=== PATIENT | male | born 1955 | race Caucasian/White ===

== ENCOUNTER 2024-08-13 02:08 | Day surgery (SDC) | payer BC, SELFPAY ==
[2024-08-06 08:53] VITALS: BMI 27.6
[2024-08-13 07:12] VITALS: BP 149/90; PULSE 102; RESP 18; TEMP 36; O2SAT 99; BMI 27.4
[2024-08-13] MEDS: LACTATED RINGERS 1,000 ML 150 ML IV CONT (07:31)
--- NOTE | 2024-08-13 07:45 | P.PNAN_ITS ---
Anes - Initial Pre Proc Eval Procedure: Operation Date: 08/13/24 08:30 Proposed Procedures p Screening Colonoscopy - Pierre Moss MD Date/Time: 08/13/24 07:45 Surgeon: Pierre Moss MD Pre Op Diagnosis: Screening malignant neoplasm of colon Patient Data Age: 69 Gender: M Height: 1.83 m Weight: 91.8 kg Last Vital Signs Temp 36.0 C L 08/13/24 07:12 Pulse 102 H 08/13/24 07:12 Resp 18 08/13/24 07:12 BP 149/90 H 08/13/24 07:12 Pulse Ox 99 08/13/24 07:12 O2 Del Method Room Air 08/13/24 07:12 Allergies Allergy/AdvReac Type Severity Reaction Status Date / Time No Known Allergies Allergy Mild Verified 08/13/24 07:19 Home Medications ?Medication ?Instructions ?Recorded ?Confirmed ?Type aspirin 81 mg capsule 81 mg PO DAILY 08/06/24 08/13/24 History lisinopril 20 mg tablet 40 mg PO DAILY 08/06/24 08/13/24 History Patient hx anesthesia problems: none Family hx anesthesia problems: none Results Review: All pre-operative results and documents have been reviewed as part of the pre- operative evaluation. [facility] Past Medical History Medical History (Updated 08/13/24 @ 07:46 by Carl Boles DO) Hypertension Surgical History Surgical History (Updated 08/13/24 @ 07:46 by Carl Boles DO) History of prostatectomy Social History Social History Smoking status: Former smoker Tobacco type: cigars Alcohol intake: current Drinks per week: 3 Substance use type: does not use Living arrangements: with family Spiritual care concerns: No Anes - Eval Final PreProcedure Day of Procedure 08/13/24 07:45 Patient weight: overweight Heart: regular rate and rhythm Lungs: clear to auscultation Airway: Mallampati scale class II Neurological: alert and oriented Last oral intake: >/= 8 hours ASA classification: II Emergent: no Anesthetic plan: proceed Anesthesia type and monitoring: general GIVS and standard monitoring Results Review: All pre-operative results and documents have been reviewed as part of the pre- operative evaluation. Informed Consent: The patient's anesthetic plan and its attendant risks and benefits were discussed with the patient/family/POA. Questions were solicited and answers provided to the satisfaction of the patient/family/POA.
--- NOTE | 2024-08-13 08:23 | PM.IMHP ---
H&P: HPI History of Present Illness Date/Time: 08/13/24 08:23 Chief Complaint: Screening colonoscopy Narrative: This is the patient's 2nd colonoscopy after 10 years. There are no GI symptoms and there is no family history of colorectal cancer. Review of Systems Review of Systems: All systems reviewed & are unremarkable except as noted in HPI and below PMFSH Past Medical History Medical History (Updated 08/13/24 @ 08:24 by Pierre Moss MD) Hypertension Surgical History Surgical History (Updated 08/13/24 @ 07:46 by Carl Boles DO) History of prostatectomy Social History Social History Smoking status: Former smoker Tobacco type: cigars Alcohol intake: current Drinks per week: 3 Substance use type: does not use Living arrangements: with family Spiritual care concerns: No Meds Home Medications and Allergies Home Medications ?Medication ?Instructions ?Recorded ?Confirmed ?Type aspirin 81 mg capsule 81 mg PO DAILY 08/06/24 08/13/24 History lisinopril 20 mg tablet 40 mg PO DAILY 08/06/24 08/13/24 History Allergies Allergy/AdvReac Type Severity Reaction Status Date / Time No Known Allergies Allergy Mild Verified 08/13/24 07:19 Vital Signs Vital Signs - 24 hr 08/13/24 07:12 Temperature 96.8 F L Pulse Rate 102 H Respiratory Rate 18 Blood Pressure 149/90 H Pulse Oximetry 99 Oxygen Delivery Room Air Exam Const: General: cooperative and healthy appearing Resp: Effort & Inspection: normal respiratory effort and able to speak in complete sentences Auscultation: clear to auscultation bilaterally Cardio: Rate: regular rate Rhythm: regular rhythm GI: Inspection: normal to inspection GI Palp: No No hepatosplenomegaly present Auscultation: normal bowel sounds Rectal Exam: deferred Skin: General skin exam: normal color Psych: Appearance: grossly normal Mental Status: mental status grossly normal Assessment and Plan Assessment and plan (1) Encounter for screening colonoscopy: Code(s): Z12.11 - Encounter for screening for malignant neoplasm of colon Status: Acute Assessment and Plan: The patient is deemed a good candidate for the procedure. Consent signed. Will proceed.
[2024-08-13 08:46] VITALS: BP 120/76; PULSE 74; RESP 20; O2SAT 100
[2024-08-13 08:56] VITALS: BP 121/82; PULSE 74; RESP 12; O2SAT 99
[2024-08-13 09:06] VITALS: BP 132/87; PULSE 64; RESP 20; O2SAT 100
--- OUTSIDE RECORDS SUMMARY | 2024-08-16 11:11 | XMS_ITS | Encounter Summary ---
Author Organization [facility] Address [address] [facility] [place] [address] Care Team Providers Care Teaseler Name Role Phone Unavailable Primary Care Provider Unavailabl e Encounter Details Date Type Department Care Team (Late st Contact Info) Description 12/09/2021 Lab Requisition [facility] [address] [facility] [place] [address] Tobin Toro MD [address] [facility] [place] [address] Social History Tobacco Use Types Packs/Day Years Used Date Smoking Tobacco: Never Assessed Sex and Gender Information Value Date Recorded Sex Assigned at Not on file Gender Identity Not on file Sexual Orientation Not on file documented as of this encounter Plan of Treatment Not on file documented as of this encounter Procedures Procedure Name Priority Date/Time Associated Diagnosis Comments DERMATOPATHOLOGY Routine 12/08/2021 12:0 0 AM CDT documented in this encounter Results * DERMATOPATHOLOGY (12/08/2021 12:00 AM CDT) Case Report Dermatopathology Report ? Case: [id number] ? Authorizing Provider: ??Tobin Toro MD ?Collected: ? 12/08/2021 12:00 AM ? Ordering Location: ? [facility] ?Received: ?12/09/2021 04:39 PM ? Pathologist: ? Kaitlin Galeana MD ? Specimens: ?? A) - Skin, left upper chest ? B) - Skin, right upper arm ? C) - Skin, right knee ? 2 3:46 PM CDT DERMATOPATHOLOGY LABORATORY Final Diagnosis Specimen A. SKIN, left upper chest: BASAL CELL CARCINOMA, NODULAR TYPE (C44.519) Specimen B. SKIN, right upper arm: SQUAMOUS CELL CARCINOMA IN SITU, PRESENT AT THE BASE OF THE SPECIMEN (D04.61) (see microscopic description and comment) Specimen C. SKIN, right knee: VERRUCA VULGARIS (B07.8) 2 3:46 PM CDT DERMATOPATHOLOGY LABORATORY Clinical History A: BCCA vs SCCA. Path # [id number]. B: BCCA vs SCCA. Path # [id number]. C: SCCA vs VV. Path # [id number]. 2 3:46 PM CDT DERMATOPATHOLOGY LABORATORY Gross Description Specimen A: Received is one formalin filled container labeled with the patient's name and designated left upper chest. The specimen consists of a shave biopsy measuring [id number]. Jar 0. Specimen B: Received is one formalin filled container labeled with the patient's name and designated right upper arm. The specimen consists of a shave biopsy measuring [id number]. Jar 0. Specimen C: Received is one formalin filled container labeled with the patient's name and designated right knee. The specimen consists of a shave biopsy measuring [id number], bisected. Jar 0. 2 3:46 PM CDT DERMATOPATHOLOGY LABORATORY Microscopic Description Specimen A. SKIN, left upper chest: Within the dermis there are aggregates of basaloid cells with a high nuclear to cytoplasmic ratio and peripheral palisading. Specimen B. SKIN, right upper arm: The epidermis shows parakeratosis, full thickness disorderly maturation of keratinocytes, mitoses at different levels, and dyskeratotic cells. The lesion extends to the base of the biopsy. COMMENT: An invasive squamous cell carcinoma cannot be ruled out. Specimen C. SKIN, right knee: There is digitated epidermal hyperplasia, hypergranulosis, vacuolated granular layer cells, and compact hyperorthokeratosis . 2 3:46 PM CDT DERMATOPATHOLOGY LABORATORY Disclaimer An external and internal positive and negative controls are appropriate for the histochemical, immunohistochemical and immunofluorescence stain(s) in this case (if any), except where stated explicitly. The performance characteristics of the stain(s) cited in this report were developed and its performance characteristic determined by the Dermatopathology Laboratory at [facility], directed by Dr. Mt Fallon. These tests need not be, and therefore are not, approved by the [place] Food and Drug Administration. The tests are used for clinical purposes. Billing Codes Specimen Charges Stain Charges 32425 35050 90673 1 1 1 2 3:46 PM CDT DERMATOPATHOLOGY LABORATORY Embedded Images 2 3:46 PM CDT DERMATOPATHOLOGY LABORATORY Pathology/Cytology TISSUE SPECIMEN FROM SKIN / Unknown 12/08/2021 12/09/2021 4:39 PM CDT Miscellaneous samples (specimen) TISSUE SPECIMEN FROM SKIN / Unknown 12/08/2021 12/09/2021 4:39 PM CDT Miscellaneous samples (specimen) TISSUE SPECIMEN FROM SKIN / Unknown 12/08/2021 12/09/2021 4:39 PM CDT Tobin Toro MD LAB - PATHOLOGY/CYTO LOGY ORDERABLES DERMATOPATHOLOGY LABORATORY [facility] - Department of Dermatology [facility] [address] [place] [address], [address] [phone] documented in this encounter Visit Diagnoses Not on filedocumented in this encounter
--- OUTSIDE RECORDS SUMMARY | 2024-08-16 11:11 | XMS_ITS | Clinical Summary ---
Author Organization [facility] Address [address] [place] [address] Care Team Providers Care Party Plan Sales Host/Hostess Name Role Phone Unavailable Primary Care Provider Unavailabl e Source Comments [facility] [employer]non-owned Affiliates and Associated Physician Practices is amultiple site organization consisting of ambulatory clinics and hospital sitesin [place], [place], [place] and [place]. This disclosure is being madepursuant to the Care Everywhere program and may not contain all information available regarding this patient. Last updated 18.[facility] [employer] Social History Tobacco Use Types Packs/Day Years Used Date Smoking Tobacco: Never Assessed Sex and Gender Information Value Date Recorded Sex Assigned at Not on file Gender Identity Not on file Sexual Orientation Not on file Plan of Treatment Health Maintenance Due Date Last Done Comments COLOGUARD (AGES 45-75) - COL ON CA SCREENING 1956 COLON MONITORING 1956 COLONOSCOPY - COLON CA SCREENING 1956 CT COLONOGRAPHY - COLON CA SCREENING 1956 Colorectal Cancer Screening 1956 FIT - COLON CA SCREENING 1956 FLEX SIG - COLON CA SCREENING 1956 LIPID TESTING 1956 HEPATITIS C SCREENING 04/17/1974 DTAP/TDAP/TD VACCINES (1 - Tdap) 1975 PNEUMOCOCCAL VACCINE 50+ (1 of 1 - PCV) 2006 ZOSTER VACCINE (1 of 2) 2006 COVID-19 VACCINE ( - 2023-2 5 season) 2024 INFLUENZA VACCINE (#1) 2024 DEPRESSION SCREENING 07/25/2024 Respiratory Syncytial Virus (RSV) Vaccine Pt: or over 60 yrs (1 - 1-dose 75+ series) 2031 HEPATITIS B VACCINE Aged Out No longe r eligible based on patient's age to complete this topic HIB VACCINE Aged Out No longer eligi ble based on patient's age to complete this topic HPV VACCINE Aged Out No longer eligi ble based on patient's age to complete this topic MENINGOCOCCAL (Group B) VACCINE Aged Out No longer eligible based on patient's age to complete this topic MENINGOCOCCAL VACCINE Aged Out No donavan orly eligible based on patient's age to complete this topic
--- OUTSIDE RECORDS SUMMARY | 2024-08-16 11:11 | XMS_ITS | Patient Health Summary ---
Author Organization [facility] Address [address] [place] [address] Care Team Providers Care Cyber Security Instructor Name Role Phone Unavailable Primary Care Provider Unavailabl e Note from [facility],non-owned Affiliates and Associated Physician Practices is amultiple site organization consisting of ambulatory clinics and hospital sitesin [place], [place], [place] and [place]. This disclosure is being madepursuant to the Care Everywhere program and may not contain all information available regarding this patient. Last updated 18.[facility] Social History Tobacco Use Types Packs/Day Years Used Date Smoking Tobacco: Never Assessed Sex and Gender Information Value Date Recorded Sex Assigned at Not on file Gender Identity Not on file Sexual Orientation Not on file Procedures * DERMATOPATHOLOGY(Performed 12/08/2021) * DERMATOPATHOLOGY(Performed 07/26/2012) Results * DERMATOPATHOLOGY (12/08/2021 12:00 AM CDT) Only the most recent of2 resultswithin the time period is included. Case Report Dermatopathology Report ? Case: [id number] ? Authorizing Provider: ??Tobin Toro MD ?Collected: ? 12/08/2021 12:00 AM ? Ordering Location: ? [facility] ?Received: ?12/09/2021 04:39 PM [...] History A: BCCA vs SCCA. Path # [id number]. B: BCCA vs SCCA. Path # [id number]. C: SCCA vs VV. Path # [id number]. 2 3:46 PM CDT DERMATOPATHOLOGY LABORATORY Gross Description Specimen A: Received is one formalin filled container labeled with the patient's name and designated left upper chest. The specimen consists of a shave biopsy measuring [id number]. Jar 0. Specimen B: Received is one formalin filled container labeled with the patient's name and designated right upper arm. The specimen consists of a shave biopsy measuring [id number]. Jar 0. Specimen C: Received is one formalin filled container labeled with the patient's name and designated right knee. The specimen consists of a shave biopsy measuring [id number], bisected. Jar 0. 2 3:46 PM CDT [...] by the Dermatopathology Laboratory at [facility], directed by Dr. Mt Fallon. These tests need not be, and therefore are not, approved by the [place] Food and Drug Administration. The tests are used for clinical purposes. Billing Codes Specimen Charges Stain Charges 22264 37545 70835 1 1 1 2 3:46 PM CDT [...] Toro MD LAB - PATHOLOGY/CYTO LOGY ORDERABLES Performing Organization Address City/State/[facility] Co de Phone Number DERMATOPATHOLOGY LABORATORY [facility] - Department of Dermatology [facility] Specialized Medicine [address] [place] [address], [address] [phone]
--- OUTSIDE RECORDS SUMMARY | 2024-08-16 11:11 | XMS_ITS | Referral Summary ---
Author Organization [facility] Address [address] [place] [address] Care Team Providers Care Glass Block Bender Name Role Phone Unavailable Primary Care Provider Unavailabl e Source Comments [facility],non-owned Affiliates and Associated Physician Practices is amultiple site organization consisting of ambulatory clinics and hospital sitesin [place], [place]. This disclosure is being madepursuant to the [...] Orientation Not on file Plan of Treatment Not on file
--- OUTSIDE RECORDS SUMMARY | 2024-08-16 11:12 | XMS_ITS | Encounter Summary ---
Author Organization [facility] Address [address] [place] [address] Care Team Providers Care Spiral Winding Machine Helper Name Role Phone Andre Acosta MD Primary Care Provider Encounter Details Date Type Department Care Team (Latest Contact Info) Description 04/29/2006 Outpatient Historical [facility] [place] 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 Gender Identity Not on file Sexual Orientation Not on file documented as of this encounter Plan of Treatment Not on file documented as of this encounter Procedures Procedure Name Priority Date/Time Associated Diagnosis Comments CBC WITH DIFFERENTIAL Routine 04/29/2006 9:32 AM CDT CBC WITH DIFFERENTIAL Routine 04/29/2006 9:32 AM CDT TSH Routine 04/29/2006 9:32 AM CDT PSA Routine 04/29/2006 9:32 AM CDT LIPID PANEL Routine 04/29/2006 9:32 AM CDT COMPREHENSIVE METABOLIC PANEL Routine 04/29/2006 9:32 AM CDT documented in this encounter Results * CBC WITH DIFFERENTIAL (04/29/2006 9:32 AM CDT) NEUTROPHILS 52 45 - 70 % INTERFAC E SYSTEM LYMPHOCYTES 35 16 - 45 % INTERFAC E SYSTEM MONOCYTES 10 3 - 13 % INTERFACE SYSTEM EOSINOPHILS 3 0 - 7 % INTERFAC E SYSTEM BASOPHILS 0 0 - 2 % INTERFACE SYSTEM NEUTROPHIL ABSOLUTE 2.63 1.90 - 7.00 K/uL INTERFACE SYSTEM LYMPHOCYTE ABSOLUTE 1.75 0.70 - 4.50 K/uL INTERFACE SYSTEM MONOCYTE ABSOLUTE 0.52 0.10 - 1.30 K/uL INTERFACE SYSTEM EOSINOPHIL ABSOLUTE 0.15 0.00 - 0.70 K/uL INTERFACE SYSTEM BASOPHILS ABSOLUTE 0.02 0.00 - 0.20 K/uL INTERFACE SYSTEM 04/29/2006 9:32 AM CDT Andre Acosta MD HEMATOLOGY ORDERABLES F inal Result Performing Organization Address [facility] de Phone Number INTERFACE SYSTEM Refer to clinic/hospital department * CBC WITH DIFFERENTIAL (04/29/2006 9:32 AM CDT) WBC 5.1 4.0 - 9.8 K/uL INTERFACE SYSTEM RBC 4.81 4.50 - 5.40 M/uL INTERFACE SYSTEM HEMOGLOBIN 15.1 13.6 - 16.5 g/dL INTERFACE SYSTEM HEMATOCRIT 43.5 40.0 - 48.0 % INTERFACE SYSTEM MCV 90.4 82.0 - 99.0 fL INTERFACE SYSTEM MCH 31.4 27.2 - 32.6 pg INTERFACE SYSTEM MCHC 34.7 31.5 - 35.5 % INTERFACE SYSTEM RDW 12.2 11.5 - 14.5 % INTERFACE SYSTEM RDW-STDEV 40.4 37.1 - 48.7 fL INTERFACE SYSTEM PLATELETS 210 140 - 350 K/uL INTERFACE SYSTEM MPV 10.1 9.3 - 12.4 fL INTERFACE SYSTEM 04/29/2006 9:32 AM CDT Andre Acosta MD HEMATOLOGY ORDERABLES F inal Result Performing Organization Address City/[facility] Co de Phone Number INTERFACE SYSTEM Refer to clinic/hospital department * TSH (04/29/2006 9:32 AM CDT) TSH 1.85 0.27 - 4.20 uU/mL INTERFACE SYSTEM 04/29/2006 9:32 AM CDT Andre Acosta MD CHEMISTRY ORDERABLES Fi nal Result INTERFACE SYSTEM Refer to clinic/hospital department * PSA (04/29/2006 9:32 AM CDT) PSA 1.0 0.0 - 4.0 ng/mL INTERFACE SYSTEM Comment:Performed on [employer]izer E170 System 04/29/2006 9:32 AM CDT us Andre Acosta MD CHEMISTRY ORDERABLES Fi nal Result Performing Organization Address City/[facility] Co de Phone Number INTERFACE SYSTEM Refer to clinic/hospital department * LIPID PANEL (04/29/2006 9:32 AM CDT) CHOLESTEROL 153 100 - 199 mg/dL INTERFACE SYSTEM TRIGLYCERIDE 46 10 - 149 mg/dL INTERFACE SYSTEM HDL 54 40 - 59 mg/dL INTERFACE SYSTEM CHOL/HDL RATIO 2.8 2.0 - 5.0 INTER FACE SYSTEM LDL CALCULATED 90 <=99 mg/dL INTERFACE SYSTEM LIPID PANEL COMMENT See Below INTERFACE SYSTEM Comment: The adult ATP and pediatric NCEP classifications for lipids are available on the [facility] Intranet at: [email or web address] Select: Lab Policies and Procedures Select: Reference Ranges - Lipids 04/29/2006 9:32 AM CDT us Andre Acosta MD CHEMISTRY ORDERABLES Fi nal Result INTERFACE SYSTEM Refer to clinic/hospital department * (ABNORMAL) COMPREHENSIVE METABOLIC PANEL (04/29/2006 9:32 AM CDT) GLUCOSE 97 65 - 99 mg/dL INTERFACE SYSTEM CREATININE 1.1 0.5 - 1.3 mg/dL INTERFACE SYSTEM CALCIUM 8.8 8.4 - 10.2 mg/dL INTERFACE SYSTEM ALKALINE PHOSPHATASE 51 40 - 129 U/L INTERFACE SYSTEM AST 30 12 - 38 U/L INTERFACE SYSTEM ALT 41 0 - 41 U/L INTERFACE SYSTEM TOTAL PROTEIN 7.1 6.3 - 8.6 g/dL INTERFACE SYSTEM ALBUMIN 4.7 3.4 - 4.8 g/dL INTERFACE SYSTEM BILIRUBIN TOTAL 0.9 0.2 - 1.0 mg/dL INTERFACE SYSTEM BUN 21(H) 6 - 20 mg/dL INTERFACE SYSTEM SODIUM 139 135 - 145 mmol/L INTERFACE SYSTEM POTASSIUM 3.9 3.5 - 4.9 mmol/L INTERFACE SYSTEM CHLORIDE 103 96 - 108 mmol/L INTERFACE SYSTEM CO2 27 22 - 30 mmol/L INTERFACE SYSTEM 04/29/2006 9:32 AM CDT us Andre Acosta MD CHEMISTRY ORDERABLES Fi nal Result INTERFACE SYSTEM Refer to clinic/hospital department documented in this encounter Visit Diagnoses Diagnosis Unspecified essential hypertension- Primary documented in this encounter Care Teams Spiral Winding Machine Helper Relationship Specialty [place] [address] [address] PCP - General 03/17/00 documented as of this encounter
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
--- OUTSIDE RECORDS SUMMARY | 2024-08-16 11:12 | XMS_ITS | Encounter Summary ---
Author Organization [facility] Address 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 [place] [address] PCP - General 03/17/00 documented as of this encounter
--- OUTSIDE RECORDS SUMMARY | 2024-08-16 11:12 | XMS_ITS | Encounter Summary ---
Author Organization [employer] Address 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 [place] [address] PCP - General 03/17/00 documented as of this encounter
--- OUTSIDE RECORDS SUMMARY | 2024-08-16 11:12 | XMS_ITS | Encounter Summary ---
Author Organization [employer] Address 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 [place] [address] PCP - General 03/17/00 documented as of this encounter
--- OUTSIDE RECORDS SUMMARY | 2024-08-16 11:12 | XMS_ITS | Encounter Summary ---
Author Organization [facility] Address [address] [facility] Attn: [place] [address] Care Team Providers Care Exterior Work Helper Name Role Phone Andre Acosta MD Primary Care Provider Encounter Details Date Type Department Care Team (Late st Contact Info) Description 04/04/1992 [place] 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 [place] [address] PCP - General 03/17/00 documented as of this encounter
--- OUTSIDE RECORDS SUMMARY | 2024-08-16 11:12 | XMS_ITS | Encounter Summary ---
Author Organization [employer] Address [address] [place] [address] Care Team Providers Care Supervisor Front Name Role Phone Andre Acosta MD Primary Care Provider Encounter Details Date Type Department Care Team (Latest Contact Info) Description 04/23/2000 Outpatient Historical [facility] [place], [place] [address] [facility] [address] [place] [address] Unspecified orthopedic aftercare (Primary Dx) Social History Tobacco Use Types Packs/Day Years Used Date Smoking Tobacco: Never Assessed Sex and Gender Information Value Date Recorded Sex Assigned at Not on file 

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
--- OUTSIDE RECORDS SUMMARY | 2024-08-16 11:12 | XMS_ITS | Encounter Summary ---
Author Organization [facility] Address [address] [place] [address] Care Team Providers Care Screen Machine Operator Name Role Phone Andre Acosta MD Primary Care Provider Encounter Details Date Type Department Care Team (Latest Contact Info) Description 05/25/2000 Outpatient Historical [facility] [place], [place] [address] [facility] [address] [place] [address] Unspecified orthopedic aftercare (Primary Dx) Social History Tobacco Use Types Packs/Day Years Used Date Smoking Tobacco: Never Assessed Sex and Gender Information Value Date Recorded Sex Assigned at Not on file Legal 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
--- OUTSIDE RECORDS SUMMARY | 2024-08-16 11:12 | XMS_ITS | Encounter Summary ---
Author Organization [facility] Address [address] [place] [address] Care Team Providers Care Hide And Skin Processing Worker Name Role Phone Andre Acosta MD Primary Care Provider Encounter Details Date Type Department Care Team (Late st Contact Info) Description 06/04/2005 Outpatient Historical [facility], [address] [place] [address] [place] [address] Social History Tobacco Use Types Packs/Day Years Used Date Smoking Tobacco: Never Assessed Sex and Gender Information Value Date Recorded Sex Assigned at Not on file Legal Sex Male 3:45 AM DUST COLLECTOR ATTENDANT Gender Identity Not on file Sexual Orientation Not on file documented as of this encounter Plan of Treatment Not on file documented as of this encounter Procedures Procedure Name Priority Date/Time Associated Diagnosis Comments CBC WITH DIFFERENTIAL Routine 06/04/2005 10:35 AM DUST COLLECTOR ATTENDANT CBC WITH DIFFERENTIAL Routine 06/04/2005 10:35 AM DUST COLLECTOR ATTENDANT TSH Routine 06/04/2005 10:35 AM DUST COLLECTOR ATTENDANT PSA Routine 06/04/2005 10:35 AM DUST COLLECTOR ATTENDANT LIPID PANEL Routine 06/04/2005 10:35 AM DUST COLLECTOR ATTENDANT COMPREHENSIVE METABOLIC PANEL Routine 06/04/2005 10:35 AM DUST COLLECTOR ATTENDANT documented in this encounter Results * CBC WITH DIFFERENTIAL (06/04/2005 10:35 AM DUST COLLECTOR ATTENDANT) [facility] NEUTROPHILS 61 45 - 70 % INTERFAC E SYSTEM LYMPHOCYTES 28 16 - 45 % INTERFAC E SYSTEM MONOCYTES 9 3 - 13 % INTERFACE SYSTEM EOSINOPHILS 2 0 - 7 % INTERFAC E SYSTEM BASOPHILS 0 0 - 2 % INTERFACE SYSTEM NEUTROPHIL ABSOLUTE 3.47 1.90 - 7.00 K/uL INTERFACE SYSTEM LYMPHOCYTE ABSOLUTE 1.59 0.70 - 4.50 K/uL INTERFACE SYSTEM MONOCYTE ABSOLUTE 0.50 0.10 - 1.30 K/uL INTERFACE SYSTEM EOSINOPHIL ABSOLUTE 0.13 0.00 - 0.70 K/uL INTERFACE SYSTEM BASOPHILS ABSOLUTE 0.02 0.00 - 0.20 K/uL INTERFACE SYSTEM 06/04/2005 10:3 5 AM DUST COLLECTOR ATTENDANT Andre Acosta MD HEMATOLOGY ORDERABLES F inal Result Performing Organization Address [facility] de Phone Number INTERFACE SYSTEM Refer to clinic/hospital department * (ABNORMAL) CBC WITH DIFFERENTIAL (06/04/2005 10:35 AM DUST COLLECTOR ATTENDANT) [facility] WBC 5.7 4.0 - 9.8 K/uL INTERFACE SYSTEM RBC 4.42(L) 4.50 - 5.40 M/uL INTERFACE SYSTEM HEMOGLOBIN 14.2 13.6 - 16.5 g/dL INTERFACE SYSTEM HEMATOCRIT 40.6 40.0 - 48.0 % INTERFACE SYSTEM MCV 91.9 82.0 - 99.0 fL INTERFACE SYSTEM MCH 32.1 27.2 - 32.6 pg INTERFACE SYSTEM MCHC 35.0 31.5 - 35.5 % INTERFACE SYSTEM RDW 12.1 11.5 - 14.5 % INTERFACE SYSTEM RDW-STDEV 41.1 37.1 - 48.7 fL INTERFACE SYSTEM PLATELETS 225 140 - 350 K/uL INTERFACE SYSTEM MPV 9.9 9.3 - 12.4 fL INTERFACE SYSTEM 06/04/2005 10:3 5 AM DUST COLLECTOR ATTENDANT Andre Acosta MD HEMATOLOGY ORDERABLES F inal Result Performing Organization Address [facility] Co de Phone Number INTERFACE SYSTEM Refer to clinic/hospital department * TSH (06/04/2005 10:35 AM DUST COLLECTOR ATTENDANT) TSH 0.91 0.27 - 4.20 uU/mL INTERFACE SYSTEM 06/04/2005 10:3 5 AM DUST COLLECTOR ATTENDANT Andre Acosta MD CHEMISTRY ORDERABLES Fi nal Result Performing Organization Address City/[facility]/ZIP Co de Phone Number INTERFACE SYSTEM Refer to clinic/hospital department * PSA (06/04/2005 10:35 AM DUST COLLECTOR ATTENDANT) PSA 1.0 0.0 - 4.0 ng/mL INTERFACE SYSTEM Comment:Performed on [employer] E170 System 06/04/2005 10:3 5 AM DUST COLLECTOR ATTENDANT Andre Acosta MD CHEMISTRY ORDERABLES Fi nal Result Performing Organization Address City/[facility] Co de Phone Number INTERFACE SYSTEM Refer to clinic/hospital department * LIPID PANEL (06/04/2005 10:35 AM DUST COLLECTOR ATTENDANT) Pathologist [facility] CHOLESTEROL 159 100 - 199 mg/dL INTERFACE SYSTEM TRIGLYCERIDE 50 10 - 149 mg/dL INTERFACE SYSTEM HDL 51 40 - 59 mg/dL INTERFACE SYSTEM LDL CALCULATED 98 <=99 mg/dL INTERFACE SYSTEM CHOL/HDL RATIO 3.1 2.0 - 5.0 INTER FACE SYSTEM Comment:See interpretive sriram a section for risk classifications. LIPID PANEL COMMENT See below INTERFACE SYSTEM Comment: Adult ATP III Classifications: Cholesterol (mg/dL) ? Triglyceride (mg/dL) Desirable ? <200 ? Normal ? <150 ?? Borderline ? 200 - 239 ?? Borderline High ? 150 - 199 High ? >=240 ? High ?200 - 499 ? Very High ? >=500 ?? HDL Cholesterol (mg/dL) ? LDL (mg/dL) Low ??(increased risk) <40 ?Optimal ? <100 ?? High (reduced risk) ??>=60 ?Near or above optimal ??100 - 129 ? Borderline ? 130 - 159 ? High ? 160 - 189 ? Very High ?>=190 LDL calculation is not accurate if Triglycerides are greater than 400 mg /dL Pediatric NCEP Classifications: Cholesterol(<20 years),(mg/dL) ?Triglyceride Desirable ?<170 ?Pediatric classification Borderline ?170 - 199 ?not defined. High >=200 ? HDL (<5 years) ? LDL (mg/dL) No Reference Range Established ?Desirable ?<110 ?Borderline ?110 - 129 ?High ?>=130 06/04/2005 10:3 5 AM DUST COLLECTOR ATTENDANT us Andre Acosta MD CHEMISTRY ORDERABLES Fi nal Result INTERFACE SYSTEM Refer to clinic/hospital department * (ABNORMAL) COMPREHENSIVE METABOLIC PANEL (06/04/2005 10:35 AM DUST COLLECTOR ATTENDANT) GLUCOSE 84 65 - 109 mg/dL INTERFACE SYSTEM CREATININE 1.2 0.5 - 1.3 mg/dL INTERFACE SYSTEM CALCIUM 8.7 8.6 - 10.2 mg/dL INTERFACE SYSTEM AST 24 12 - 38 U/L INTERFACE SYSTEM ALKALINE PHOSPHATASE 57 40 - 129 U/L INTERFACE SYSTEM BUN 23(H) 6 - 20 mg/dL INTERFACE SYSTEM BILIRUBIN TOTAL 0.5 0.2 - 1.0 mg/dL INTERFACE SYSTEM ALBUMIN 4.2 3.4 - 4.8 g/dL INTERFACE SYSTEM TOTAL PROTEIN 6.9 6.3 - 8.6 g/dL INTERFACE SYSTEM ALT 28 0 - 41 U/L INTERFACE SYSTEM SODIUM 138 135 - 145 mmol/L INTERFACE SYSTEM POTASSIUM 3.6 3.5 - 4.9 mmol/L INTERFACE SYSTEM CHLORIDE 103 96 - 108 mmol/L INTERFACE SYSTEM CO2 28 22 - 30 mmol/L INTERFACE SYSTEM 06/04/2005 10:3 5 AM DUST COLLECTOR ATTENDANT Andre Acosta MD CHEMISTRY ORDERABLES Fi nal Result Performing Organization Address [facility] de Phone Number INTERFACE SYSTEM Refer to clinic/hospital department documented in this encounter Visit Diagnoses Not on filedocumented in this encounter Care Teams Hide And Skin Processing Worker Relationship Specialty [place] [address] [address] PCP - General 03/17/00 documented as of this encounter
--- OUTSIDE RECORDS SUMMARY | 2024-08-16 11:12 | XMS_ITS | Encounter Summary ---
Author Organization [facility] Address [address] [place] [address] Care Team Providers Care Cutting And Printing Machine Operator Name Role Phone Andre Acosta MD Primary Care Provider Encounter Details Date Type Department Care Team (Late st Contact Info) Description 06/09/2004 Outpatient Historical [facility], [address] [place] [address] [phone] Social History Tobacco Use Types Packs/Day Years Used Date Smoking Tobacco: Never Assessed Sex and Gender Information Value Date Recorded Sex Assigned at Not on file Legal Sex Male 3:45 AM PORT ENGINEER Gender Identity Not on file Sexual Orientation Not on file documented as of this encounter Plan of Treatment Not on file documented as of this encounter Visit Diagnoses Not on filedocumented in this encounter Care Teams Cutting And Printing Machine Operator Relationship Specialty [place] [address] [place] [address] PCP - General 03/17/00 documented as of this encounter
--- OUTSIDE RECORDS SUMMARY | 2024-08-16 11:12 | XMS_ITS | Encounter Summary ---
Author Organization [facility] Address [address] [place] [address] Care Team Providers Care Parole Or Probation Officer Name Role Phone Andre Acosta MD Primary Care Provider Encounter Details Date Type Department Care Team (Late st Contact Info) Description 04/19/2001 Outpatient Historical HIS [facility] [address] [address] [place] [place] [phone] Social History Tobacco Use Types Packs/Day Years Used Date Smoking Tobacco: Never Assessed Sex and Gender Information Value Date Recorded Sex Assigned at Not on file Legal Sex Male 3:45 AM HOSPITAL NURSING ASSISTANT Gender Identity Not on file Sexual Orientation Not on file documented as of this encounter Plan of Treatment Not on file documented as of this encounter Visit Diagnoses Not on filedocumented in this encounter Care Teams Parole Or Probation Officer Relationship Specialty [place] [address] [place] [address] PCP - General 03/17/00 documented as of this encounter
--- OUTSIDE RECORDS SUMMARY | 2024-08-16 11:12 | XMS_ITS | Encounter Summary ---
Author Organization [facility] Address [address] [place] [address] Care Team Providers Care Extra Hand Name Role Phone Andre Acosta MD Primary Care Provider Encounter Details Date Type Department Care Team (Latest Contact Info) Description 03/22/2000 Outpatient Historical [facility] [place], [place] [address] [facility] [address] [place] [address] Unspecified orthopedic aftercare (Primary Dx) Social History Tobacco Use Types Packs/Day Years Used Date Smoking Tobacco: Never Assessed Sex and Gender Information Value Date Recorded Sex Assigned at Not on file Legal Sex Male 3:45 AM KELP OR SEAGRASS 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
--- OUTSIDE RECORDS SUMMARY | 2024-08-16 11:12 | XMS_ITS | Encounter Summary ---
Author Organization [facility] Address [address] [place] [address] Care Team Providers Care Partridge Farmer Name Role Phone Andre Acosta MD Primary Care Provider Encounter Details Date Type Department Care Team (Late st Contact Info) Description 05/18/2001 Outpatient Historical HIS [facility] [address] [address] 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 [place] [phone] PCP - General 03/17/00 documented as of this encounter
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
--- OUTSIDE RECORDS SUMMARY | 2024-08-16 11:12 | XMS_ITS | Encounter Summary ---
Author Organization [facility] Address [address] [place] [address] Care Team Providers Care Wind Farm Support Specialist Name Role Phone Andre Acosta MD Primary Care Provider Encounter Details Date Type Department Care Team (Late st Contact Info) Description 04/20/2002 Outpatient Historical HIS [facility] [place] [address] [address] [facility]. [address] [place] [phone] Social History Tobacco Use Types Packs/Day Years Used Date Smoking Tobacco: Never Assessed Sex and Gender Information Value Date Recorded Sex Assigned at Not on file Legal Sex Male 3:45 AM 3D DESIGNER Gender Identity Not on file Sexual Orientation Not on file documented as of this encounter Plan of Treatment Not on file documented as of this encounter Visit Diagnoses Not on filedocumented in this encounter Care Teams Wind Farm Support Specialist Relationship Specialty [place] [address] [place] [address] PCP - General 03/17/00 documented as of this encounter
== END 2024-08-13 09:28 | disposition home or self-care (01) ==
PROVIDERS: Visit Provider Internal Medicine Gastroenterology
PROC: 0DJD8ZZ Inspection of Lower Intestinal Tract, Via Natural or Artificial Opening Endoscopic (ICD-10-PCS; CPT 45378; principal; 2024-08-13 08:30)
DX: Z12.11 Encounter for screening for malignant neoplasm of colon (principal); K63.5 Polyp of colon; K57.30 Diverticulosis of large intestine without perforation or abscess without bleeding; Z87.891 Personal history of nicotine dependence
CPT/HCPCS: 45385; 88305; J2003; J2704; J7120